=== PATIENT | female | born 1980 | race Two or more races ===

== ENCOUNTER 2024-03-30 05:53 | Day surgery (SDC) | payer OTHER ==
[2024-03-27 10:06] VITALS: BP 130/75
[~2024-03-30] VITALS: Ht 167.6 cm; Wt 61.2 kg
[2024-03-30] MEDS ORDERED: CEFAZOLIN SODIUM 1,000 MG VIAL ONE (07:42)
[2024-03-30] MEDS ORDERED: EPINEPHRINE HCL/PF 1 MG/ML AMPUL ONE ×2 (08:18→09:31)
[2024-03-30] MEDS ORDERED: LIDOCAINE HCL 1% 20ML VIAL IJ ONE ×2 (08:19→09:31)
[2024-03-30] MEDS ORDERED: ENOXAPARIN SODIUM 40 MG/0.4 ML SYRINGE SUBCUTANEO ONE (09:16)
[2024-03-30] MEDS ORDERED: TRANEXAMIC ACID 100MG/1ML (1000MG) AMPUL IV ONE (09:16)
[2024-03-30] MEDS ORDERED: MORPHINE SULFATE 4 MG/ML VIAL IV ONE (13:50)
== END 2024-03-30 15:40 | disposition home or self-care (01) ==
LOC: CIR.AMB 05:53
PROVIDERS: ATTEND Specialist
DX: E65 Localized adiposity (principal); L98.7 Excessive and redundant skin and subcutaneous tissue